=== PATIENT | male | born 1955 | race Caucasian/White ===

== ENCOUNTER 2018-12-08 18:13 | Emergency (ER) | payer OTHER ==
[2018-12-08] MEDS ORDERED: Bacitracin Oint 1 GM U/D Packet TOP ONE (19:15)
[2018-12-08] MEDS ORDERED: Lidocaine 1% with EPINEPHrine 1:100,000 50 ML MDV SUBCUT ONE (19:15)
--- NOTE | 2018-12-08 19:18 | EDM.PDOC ---
ED HPI GENERAL MEDICAL PROBLEM - General Chief Complaint: Laceration Stated Complaint: CUT ON THE HEAD FROM A FALL Time Seen by Provider: 12/08/18 19:06 Source of Information: Reports: Patient History Limitations: Reports: No Limitations - History of Present Illness INITIAL COMMENTS - FREE TEXT/NARRATIVE: Patient states he has a neuromuscular disease and his legs dont want to cooperate; he tripped and fell, hit the left side of his forehead; 1 cm lac. Linear, Not bleeding; No LOC. Onset: Today Duration: Hour(s): Location: Reports: Face Improves with: Reports: None Worsens with: Reports: None Associated Symptoms: Reports: No Other Symptoms - Related Data Allergies Allergy/AdvReac Type Severity Reaction Status Date / Time No Known Allergies Allergy Verified 12/08/18 18:39 Home Meds: Home Meds NK [No Known Home Meds] 12/08/18 [History] Past Medical History Neurological History: Reports: Other (See Below) Other Neuro History: PLS Social & Family History - Tobacco Use Years of Tobacco use: 10 Packs/Tins Daily: 0.1 ED ROS GENERAL - Review of Systems Review Of Systems: ROS reveals no pertinent complaints other than HPI. ED EXAM, SKIN/RASH Exam: See Below Exam Limited By: No Limitations General Appearance: Alert, WD/WN Eye Exam: Bilateral Eye: EOMI, PERRL Head: Normocephalic, Other (laceration left brown) Neck: Normal Inspection, Supple, Non-Tender, Full Range of Motion Respiratory/Chest: No Respiratory Distress, Lungs Clear, Normal Breath Sounds Extremities: Normal Inspection, Normal Range of Motion Neurological: Alert, Oriented, Normal Cognition, Sensory/Motor Deficit, Other ( has neuromuscular disease) Psychiatric: Normal Affect, Normal Mood Skin: Warm, Dry, Intact Location, Skin: Face (left brow) ED SKIN PROCEDURES - Laceration/Wound Repair Left Forehead Lac/Wound length In cm: 1 Appearance: Subcutaneous Anesthetic Type: Local Local Anesthesia - Lidocaine (Xylocaine): 1% with EPI Local Anesthetic Volume: 4cc Exploration/Debridement/Repair: Wound Explored, In a Bloodless Field, Explored to Base, No Foreign Material Found, Wound Margins Revised Closed with: Sutures Suture Size: 6-0 # of Sutures: 3 Suture Type: Prolene, Simple Course - Vital Signs Last Recorded V/S: Last Vital Signs Temp 98.1 F 12/08/18 18:45 Pulse 82 12/08/18 18:45 Resp 16 12/08/18 18:45 BP 135/80 12/08/18 18:45 Pulse Ox 98 12/08/18 18:45 - Orders/Labs/Meds Meds: Medications Discontinued Medications Generic Name Dose Route Start Last Admin Trade Name Gal PRN Reason Stop Dose Admin Bacitracin 1 dose 12/08/18 19:15 12/08/18 19:31 Bacitracin Oint 1 Gm TOP 12/08/18 19:16 1 dose ONETIME ONE Administration Lidocaine/Epinephrine 4 ml 12/08/18 19:15 12/08/18 19:32 Xylocaine 1% With Epinephrine 1:100,000 SUBCUT 12/08/18 19:16 4 ml ONETIME ONE Administration Departure - Departure Time of Disposition: 19:48 Disposition: Home, Self-Care 01 Condition: Good Clinical Impression: Laceration of forehead without complication - Discharge Information *PRESCRIPTION DRUG MONITORING PROGRAM REVIEWED*: Not Applicable *COPY OF PRESCRIPTION DRUG MONITORING REPORT IN PATIENT JONATHAN: Not Applicable Instructions: Laceration Care, Adult Referrals: PCP,None [Primary Care Provider] - Forms: ED Department Discharge Additional Instructions: Keep site clean and dry for 24 hours Watch for infection Sutures out in 7 days Call with questions Return with concerns. - Problem List & Annotations (1) Laceration of forehead without complication SNOMED Code(s): 847613041 Code(s): S01.81XA - LACERATION W/O FOREIGN BODY OF OTH PART OF HEAD, INIT ENCNTR Status: Acute Priority: Low Current Visit: Yes Qualifiers: Encounter type: initial encounter Qualified Code(s): S01.81XA - Laceration without foreign body of other part of head, initial encounter - Problem List Review Problem List Initiated/Reviewed/Updated: Yes
== END 2018-12-08 20:01 | disposition home or self-care (01) ==
LOC: JP.ED 18:13
DX: S01.81XA Laceration without foreign body of other part of head, initial encounter (principal); W01.198A Fall on same level from slipping, tripping and stumbling with subsequent striking against other object, initial encounter
CPT/HCPCS: 12011; 99282